=== PATIENT | male | born 1980 | race Caucasian/White ===

== ENCOUNTER 2017-02-26 02:37 | Inpatient (IN) | payer OTHER ==
[2017-02-26] MEDS ORDERED: MORPHINE IV PRN (03:07)
[2017-02-26] MEDS ORDERED: LACTATED RINGERS 1,000 ML IV SCH (04:00)
[2017-02-26] MEDS ORDERED: BENADRYL IV PRN (09:00)
[2017-02-26] MEDS: ZOFRAN IV PRN (09:54)
[2017-02-26] MEDS: HEPARIN/ 0.45% NACL-25,000 UNIT/500 ML 25,000 UNIT/500 ML BAG IV SCH (10:03)
[2017-02-26 10:16] LABS: Basophils % (Auto) 0.4 % (0.0-1.8); Eosinophils % (Auto) 0.6 % (0.0-4.3); Hematocrit 41.6 % (35.5-45.6); Hemoglobin 14.7 gm/dl (11.8-15.2); Mean Corpuscular HGB Conc 35 % (32-34); Mean Corpuscular Hemoglobin 28 pg (28-32); Mean Corpuscular Volume 80 fl (84-94); Platelet Count 172 K/mm3 (140-440); Red Blood Count 5.21 M/mm3 (3.65-5.03); Red Cell Distribution Width 13.6 % (13.2-15.2); White Blood Count 12.2 K/mm3 (4.5-11.0)
[2017-02-26 10:21] LABS: INR 1.16 (0.87-1.13)
[2017-02-26 10:22] LABS: Partial Thromboplastin Time 31.8 Sec. (24.2-36.6)
[2017-02-26 10:29] LABS: Alanine Aminotransferase 57 units/L (7-56); Albumin 4.2 g/dL (3.9-5); Albumin/Globulin Ratio 1.2 %; Alkaline Phosphatase 67 units/L (35-129); Anion Gap 19 mmol/L; Blood Urea Nitrogen 18 mg/dL (9-20); Calcium 8.9 mg/dL (8.4-10.2); Carbon Dioxide 24 mmol/L (22-30); Chloride 98.8 mmol/L (98-107); Glucose 110 mg/dL (75-100); Potassium 4.1 mmol/L (3.6-5.0); Sodium 138 mmol/L (137-145); Total Protein 7.6 g/dL (6.3-8.2)
--- NOTE | 2017-02-26 11:46 | History and Physical Report ---
History of Present Illness Date of examination: 02/26/17 Date of admission: 02/26/17 08:43 Chief complaint: abdominal pain History of present illness: 37 y.o. male transferred from [facility] overnight for a SMV clot. He is s/p sleeve gastrectomy 2-3 weeks ago. The patient had abd. pain starting Tuesday that progressively worsened. He denies any n/v. Denies constipation. He was walking frequently at home. He denies sob or leg pain. In the ER at the other facility, a hep drip was started he was given medication for pain. His abdominal pain has slightly improved but he states the pain remains a 7/10, mid abd, non radiating. He has been tolerating a liquid diet. Past History Past Medical History: other (sleep apnea ) Past Surgical History: Other (lap sleeve gastrectomy ) Social history: no significant social history, Family history: no significant family history Medications and Allergies Allergies Allergy/AdvReac Type Severity Reaction Status Date / Time No Known Allergies Allergy Unverified 02/26/17 08:50 Active Meds: Active Medications Diphenhydramine HCl (Benadryl) 25 mg IV Q6H PRN PRN Reason: Itching Lactated Ringer's (Lactated Ringers) 1,000 mls @ 150 mls/hr IV DIRECT JOSE Last Admin: 02/26/17 10:10 Dose: 150 mls/hr Heparin Sodium/Sodium Chloride (Heparin/ 0.45% Nacl-25,000 Unit/500 Ml) 25,000 unit in 500 mls @ 30 mls/hr IV TITR JOSE; 1,500 UNITS/HR PRN Reason: Protocol Last Admin: 02/26/17 10:03 Dose: 1,500 units/hr, 30 mls/hr Morphine Sulfate (Morphine) 2 mg IV Q4H PRN PRN Reason: Pain, Moderate (4-6) Last Admin: 02/26/17 09:55 Dose: 2 mg Ondansetron HCl (Zofran) 4 mg IV Q4H PRN PRN Reason: Nausea And Vomiting Last Admin: 02/26/17 09:54 Dose: 4 mg Review of Systems - Constitutional no chills, no sweats - Cardiovascular no chest pain, no orthopnea, no palpitations, no edema - Respiratory no cough, no cough with sputum, no excessive sputum, no shortness of breath - Gastrointestinal abdominal pain, other (per hpi) - Genitourinary no dysuria - Muskuloskeletal no neck stiffness, no neck pain, no shooting arm pain - Integumentary no rash, no pruritis, no redness - Neurological no transient paralysis, no paralysis, no weakness, no parathesias Exam Vital Signs Pulse 88 02/26/17 08:46 - General physical appearance Positive: obese - Eyes Positive: PERRL - Respiratory Positive: normal expansion, normal respiratory effort - Cardiovascular Rhythm: regular - Extremities Extremities: no ischemia, pulses intact, pulses symmetrical - Abdomen Abdomen: Present: soft, other (obese,tender mid abd. no rebound no guarding incisions cdi with sterstrips in place ) - Neurologic Neurologic: alert and oriented to time, place and person, motor strength and sensation are grossly intact, CN II-XII intact Results - Labs 02/26/17 09:50 02/26/17 09:50 Abnormal lab results 02/26/17 02/26/17 02/26/17 Range/Units 09:50 09:50 09:50 WBC 12.2 H (4.5-11.0) K/mm3 RBC 5.21 H (3.65-5.03) M/mm3 MCV 80 L (84-94) fl MCHC 35 H (32-34) % [place] % (Auto) 7.7 H (0.0-7.3) % [place] # 0.9 H (0.0-0.8) K/mm3 Seg Neutrophils % 75.1 H (40.0-70.0) % Seg Neutrophils # 9.2 H (1.8-7.7) K/mm3 INR 1.16 H (0.87-1.13) Glucose 110 H (75-100) mg/dL ALT 57 H (7-56) units/L Diabetes panel 02/26/17 Range/Units 09:50 Sodium 138 (137-145) mmol/L Potassium 4.1 (3.6-5.0) mmol/L Chloride 98.8 (98-107) mmol/L Carbon Dioxide 24 (22-30) mmol/L BUN 18 (9-20) mg/dL Creatinine 1.0 (0.8-1.5) mg/dL Glucose 110 H (75-100) mg/dL Calcium 8.9 (8.4-10.2) mg/dL AST 26 (5-40) units/L ALT 57 H (7-56) units/L Alkaline Phosphatase 67 (35-129) units/L Total Protein 7.6 (6.3-8.2) g/dL Albumin 4.2 (3.9-5) g/dL Calcium panel 02/26/17 Range/Units 09:50 Calcium 8.9 (8.4-10.2) mg/dL Albumin 4.2 (3.9-5) g/dL Pituitary panel 02/26/17 Range/Units 09:50 Sodium 138 (137-145) mmol/L Potassium 4.1 (3.6-5.0) mmol/L Chloride 98.8 (98-107) mmol/L Carbon Dioxide 24 (22-30) mmol/L BUN 18 (9-20) mg/dL Creatinine 1.0 (0.8-1.5) mg/dL Glucose 110 H (75-100) mg/dL Calcium 8.9 (8.4-10.2) mg/dL Adrenal panel 02/26/17 Range/Units 09:50 Sodium 138 (137-145) mmol/L Potassium 4.1 (3.6-5.0) mmol/L Chloride 98.8 (98-107) mmol/L Carbon Dioxide 24 (22-30) mmol/L BUN 18 (9-20) mg/dL Creatinine 1.0 (0.8-1.5) mg/dL Glucose 110 H (75-100) mg/dL Calcium 8.9 (8.4-10.2) mg/dL Total Bilirubin 0.50 (0.1-1.2) mg/dL AST 26 (5-40) units/L ALT 57 H (7-56) units/L Alkaline Phosphatase 67 (35-129) units/L Total Protein 7.6 (6.3-8.2) g/dL Albumin 4.2 (3.9-5) g/dL Assessment and Plan - Patient Problems (1) Thrombosis Current Visit: Yes Status: Acute Plan to address problem: 37 yo male s/p sleeve gastrectomy 2-3 weeks prior admitted for SMV thrombosis Hep drip started at other facility and continues. Next PTT at 12pm. Will follow protocol for PTT and hep drip rate. Hemology consulted for transitioning to PO medication from hep drip. Pt has no prior hx of thrombosis Pain control- dilualdid and liquid lortab prn diet: clears, sugar free PPI hx of sleep apnea: resp for cpap at night. Anticipate 2-3 days in the hospital.
[2017-02-26] MEDS ORDERED: 1: FOLVITE 1 MG, INFUVITE 10 ML, VITAMIN B-1 100 MG in NACL 0.9% 1000 ML 988.8 ML 2: NA IV SCH (12:00)
[2017-02-26] MEDS: DILAUDID IV PRN ×3 (12:53→20:51)
[2017-02-26 12:55] LABS: Partial Thromboplastin Time 36.2 Sec. (24.2-36.6)
[2017-02-26] MEDS: PROTONIX PO SCH (12:55)
[2017-02-26] MEDS: INFUVITE IV SCH (13:48)
[2017-02-26] MEDS: VITAMIN B1 IV SCH (13:48)
[2017-02-26] MEDS: NACL 0.9% IV SCH (13:48)
[2017-02-26] MEDS: FOLVITE IV SCH (13:48)
[2017-02-26] MEDS ORDERED: NACL 0.9% 1000 ML 1,000 ML IV SCH (20:00)
--- NOTE | 2017-02-26 22:51 | Consultation ---
History of Present Illness - Reason for Consult Consult date: 02/26/17 SMV thrombus. Requesting physician: PIEDAD GANDARA - History of Present Illness Thank you for this consult, patient seen/examined, record reviewed, case d/w him. Kindly asked to see this patient for the reason above. He is 3 weeks s/p a sleeve gastrectomy procedure, and reported abd pain, w/up led to the dx, he has since been started on IV heparin, hence the consult. He is on BIPAP for TANYA, and denies any new issues at this time. REC continue anticoagulation, see w/up labs. Past History Past Medical History: other (sleep apnea ) Past Surgical History: bowel surgery, Other (lap sleeve gastrectomy ) Social history: no significant social history, Family history: no significant family history Medications and Allergies Allergies Allergy/AdvReac Type Severity Reaction Status Date / Time No Known Allergies Allergy Unverified 02/26/17 08:50 Home Medications Medication Instructions Recorded Confirmed Last Taken Type NexIUM 24Hr 40 mg PO DAILY 02/26/17 02/26/17 02/25/17 10:00 History Active Meds: Active Medications Acetaminophen/Hydrocodone Bitart ([place]) 7.5 mg PO Q4H PRN PRN Reason: Pain, Moderate (4-6) Diphenhydramine HCl (Benadryl) 25 mg IV Q6H PRN PRN Reason: Itching Hydromorphone HCl (Dilaudid) 1 mg IV Q4H PRN PRN Reason: Pain , Severe (7-10) Last Admin: 02/26/17 20:51 Dose: 1 mg Heparin Sodium/Sodium Chloride (Heparin/ 0.45% Nacl-25,000 Unit/500 Ml) 25,000 unit in 500 mls @ 30 mls/hr IV TITR JOSE; 1,500 UNITS/HR PRN Reason: Protocol Last Admin: 02/26/17 10:03 Dose: 1,500 units/hr, 30 mls/hr Multivitamins/Minerals 10 ml/Folic Acid 1 mg/ Thiamine HCl 100 mg/ Sodium Chloride 1,011.2 mls @ 125 mls/hr IV QDAY JOSE Last Admin: 02/26/17 13:48 Dose: 125 mls/hr Sodium Chloride (Nacl 0.9% 1000 Ml) 1,000 mls @ 125 mls/hr IV DIRECT JOSE Ondansetron HCl (Zofran) 4 mg IV Q4H PRN PRN Reason: Nausea And Vomiting Last Admin: 02/26/17 09:54 Dose: 4 mg Pantoprazole Sodium (Protonix) 20 mg PO QDAY JOSE Last Admin: 02/26/17 12:55 Dose: 20 mg Exam - Constitutional Vitals: Temp Pulse Resp BP Pulse Ox 98.3 F 84 20 127/80 95 02/26/17 19:54 02/26/17 19:54 02/26/17 20:51 02/26/17 19:54 02/26/17 19:54 General appearance: Present: mild distress, well-nourished - EENT Eyes: Present: PERRL ENT: hearing intact, clear oral mucosa - Neck Neck: Present: supple, normal ROM - Respiratory Respiratory: bilateral: diminished - Cardiovascular Heart Sounds: Present: S1 & S2. Absent: rub, click - Extremities Extremities: pulses symmetrical, No edema Peripheral Pulses: within normal limits - Abdominal General gastrointestinal: Present: soft, tender, normal bowel sounds Male genitourinary: Present: deferred - Rectal Rectal Exam: deferred - Integumentary Integumentary: Present: clear, warm, dry - Musculoskeletal Musculoskeletal: gait normal, strength equal bilaterally - Psychiatric Psychiatric: appropriate mood/affect, intact judgment & insight - Neurologic Neurologic: CNII-XII intact, moves all extremities Results - Labs CBC & Chem 7: 02/26/17 09:50 02/26/17 09:50 Labs: Abnormal lab results 02/26/17 02/26/17 02/26/17 Range/Units 09:50 09:50 09:50 WBC 12.2 H (4.5-11.0) K/mm3 RBC 5.21 H (3.65-5.03) M/mm3 MCV 80 L (84-94) fl MCHC 35 H (32-34) % [place] % (Auto) 7.7 H (0.0-7.3) % [place] # 0.9 H (0.0-0.8) K/mm3 Seg Neutrophils % 75.1 H (40.0-70.0) % Seg Neutrophils # 9.2 H (1.8-7.7) K/mm3 INR 1.16 H (0.87-1.13) APTT (24.2-36.6) Sec. Heparin Anti-Xa Level (0.3-0.7) U.I./ml Glucose 110 H (75-100) mg/dL ALT 57 H (7-56) units/L 02/26/17 02/26/17 02/26/17 Range/Units 12:04 17:03 21:12 WBC (4.5-11.0) K/mm3 RBC (3.65-5.03) M/mm3 MCV (84-94) fl MCHC (32-34) % [place] % (Auto) (0.0-7.3) % [place] # (0.0-0.8) K/mm3 Seg Neutrophils % (40.0-70.0) % Seg Neutrophils # (1.8-7.7) K/mm3 INR (0.87-1.13) APTT 61.6 H* (24.2-36.6) Sec. Heparin Anti-Xa Level < 0.10 L 0.73 H (0.3-0.7) U.I./ml Glucose (75-100) mg/dL ALT (7-56) units/L Assessment and Plan - Patient Problems (1) Thrombosis Current Visit: Yes Status: Acute Plan to address problem: anticoagulate, see labs/orders. (2) Post surgical complication Current Visit: Yes Status: Acute Qualifiers: Surgical complication system/body Area: S Surgical complication type: S Procedure type: P Encounter type: E Laterality: L Postoperative shock type : P
[2017-02-26] MEDS: NORCO PO PRN (23:57)
[2017-02-27] MEDS: MILK OF MAGNESIA PO SCH ×2 (00:55→09:30)
[2017-02-27] MEDS: MYLICON PO PRN (00:55)
[2017-02-27] MEDS: DILAUDID IV PRN ×4 (02:16→22:59)
[2017-02-27] MEDS: COLACE PO SCH ×3 (02:16→21:48)
[2017-02-27] MEDS: NORCO PO PRN ×4 (05:34→20:17)
[2017-02-27 06:00] LABS: INR 1.11 (0.87-1.13)
[2017-02-27 06:01] LABS: Partial Thromboplastin Time 34.7 Sec. (24.2-36.6)
--- NOTE | 2017-02-27 09:05 | XRay Report ---
Single view abdomen: History: Abdominal pain. Findings: Minimal air in small and large bowel. No bowel wall thickening. No radiopaque calculus or abnormal calcification. Impression: Essentially negative abdomen.
[2017-02-27] MEDS: PROTONIX PO SCH (09:31)
--- NOTE | 2017-02-27 10:35 | Progress Note ---
Assessment and Plan - Patient Problems (1) Thrombosis Current Visit: Yes Status: Acute Plan to address problem: 37 yo male s/p sleeve gastrectomy 2-3 weeks prior admitted for SMV thrombosis SMV thrombosis: heparin drip titrate to PTT. Heme following for recs regarding transition to PO medication. Pt does not have a PCP but would need to be followed if coumadin to be started. Pt would need a PCP or be followed by heme as outpt regarding INR if coumadin started. Appreciate heme recs. Pain control- dilualdid and liquid lortab prn. diet: clears, sugar free PPI hx of sleep apnea: resp for cpap at night. Pt should be encouraged to ambulate. Anticipate 2-3 days in the hospital. Subjective Date of service: 02/27/17 Narrative: Pt seen and examined at bedside. Overnight pt has abdominal pain that was not well controlled with Dilaudid. Pt received lortab liquid overnight He had a liquid bowel movement overnight but feels he should be having more bm. We reassured him liquid bm or constipation is normal after bariatric surgery. He received milk of mag and gas ex overnight. He also has been started on colace. He vomited a small amount this am after drinking juice with medications. He has not vomited since and his nausea improved. afebrile Objective Vital Signs - 12hr 02/26/17 02/27/17 02/27/17 23:57 00:57 01:20 Temperature 98.2 F Pulse Rate 85 Pulse Rate [ Apical] Respiratory 20 20 22 Rate Respiratory Rate [Abdomen] Blood Pressure 140/68 O2 Sat by Pulse 95 Oximetry 02/27/17 02/27/17 02/27/17 01:54 02:16 02:46 Temperature Pulse Rate Pulse Rate [ Apical] Respiratory 20 20 Rate Respiratory 20 Rate [Abdomen] Blood Pressure O2 Sat by Pulse Oximetry 02/27/17 02/27/17 02/27/17 05:14 05:34 06:34 Temperature 98.2 F Pulse Rate 88 Pulse Rate [ Apical] Respiratory 22 18 18 Rate Respiratory Rate [Abdomen] Blood Pressure 133/82 O2 Sat by Pulse 92 Oximetry 02/27/17 02/27/17 02/27/17 08:00 08:25 10:00 Temperature 98.8 F Pulse Rate 98 H 84 Pulse Rate [ 98 H Apical] Respiratory 20 20 Rate Respiratory 18 Rate [Abdomen] Blood Pressure 136/86 O2 Sat by Pulse 94 99 Oximetry - General physical appearance obese - Respiratory normal expansion, normal respiratory effort, clear to auscultation - Abdomen soft, other (obese, incision sites cdi. tender midline. no rebound no guarding. +BS) - Neurologic normal coordination, normal sensation - Psychiatric oriented to time, oriented to person, speech is normal, memory intact - Labs 02/26/17 09:50 02/26/17 09:50 - Imaging Abdominal x-ray: image reviewed
[2017-02-27] MEDS ORDERED: NACL 0.9% IV SCH (11:00)
[2017-02-27] MEDS ORDERED: MILK OF MAGNESIA PO PRN (11:00)
[2017-02-27 13:55] LABS: Partial Thromboplastin Time 47.8 Sec. (24.2-36.6)
[2017-02-27] MEDS: NACL 0.9% 1000 ML 1,000 ML IV SCH (14:15)
[2017-02-27] MEDS: HEPARIN/ 0.45% NACL-25,000 UNIT/500 ML 25,000 UNIT/500 ML BAG IV SCH (14:59)
[2017-02-27] MEDS: ZOFRAN IV PRN (17:52)
[2017-02-27] MEDS: FOLVITE IV SCH (19:41)
[2017-02-27] MEDS: NACL 0.9% IV SCH (19:41)
[2017-02-27] MEDS: VITAMIN B1 IV SCH (19:41)
[2017-02-27] MEDS: INFUVITE IV SCH (19:41)
--- NOTE | 2017-02-27 21:08 | Progress Note ---
Assessment and Plan - Patient Problems (1) Thrombosis Current Visit: Yes Status: Acute Plan to address problem: anticoagulate, see labs/orders. (2) Post surgical complication Current Visit: Yes Status: Acute Qualifiers: Surgical complication system/body Area: S Surgical complication type: S Procedure type: P Encounter type: E Laterality: L Postoperative shock type : P Subjective Date of service: 02/27/17 Interval history: Patient seentoday, resting in bed, labs /notes reviewed, case d/w him/spouse. c/ o feels a bit better from yesterday. KUB ok. He may be started on coumadin oral tomorrow, this will be cheaper for him out patient since he does not have ins coverage. Once INR therapeutic, he may be d/c. Objective - Constitutional Vitals: Vital Signs - 12hr 02/27/17 02/27/17 02/27/17 10:00 12:36 12:56 Temperature 98.6 F Pulse Rate 83 Pulse Rate [ 98 H Apical] Respiratory 20 18 20 Rate Respiratory 18 Rate [Abdomen] Blood Pressure 142/79 O2 Sat by Pulse 99 93 Oximetry 02/27/17 02/27/17 02/27/17 15:29 15:44 20:23 Temperature 98.5 F 98.5 F 99.5 F Pulse Rate 90 Pulse Rate [ Apical] Respiratory 20 20 20 Rate Respiratory Rate [Abdomen] Blood Pressure 127/71 119/70 158/93 O2 Sat by Pulse 96 90 Oximetry General appearance: Present: mild distress, well-nourished - EENT Eyes: PERRL, EOM intact ENT: hearing intact, clear oral mucosa Ears: bilateral: normal - Neck Neck: supple, normal ROM - Respiratory Respiratory: bilateral: diminished - Cardiovascular Rhythm: regular Heart Sounds: Present: S1 & S2. Absent: gallop, rub Extremities: pulses intact, No edema, normal color, Full ROM - Gastrointestinal General gastrointestinal: Present: soft, non-tender, non-distended, normal bowel sounds Rectal Exam: deferred - Genitourinary Male genitourinary: deferred - Integumentary Integumentary: clear, warm, dry - Musculoskeletal Musculoskeletal: 1, strength equal bilaterally - Neurologic Neurologic: moves all extremities - Psychiatric Psychiatric: memory intact, appropriate mood/affect, intact judgment & insight - Labs CBC & Chem 7: 02/26/17 09:50 02/26/17 09:50 Labs: Abnormal lab results 02/26/17 02/27/17 02/27/17 Range/Units 21:12 05:20 05:20 APTT 52.1 H (24.2-36.6) Sec. Heparin Anti-Xa Level 0.73 H 0.25 L (0.3-0.7) U.I./ml 02/27/17 02/27/17 Range/Units 13:21 17:36 APTT 47.8 H 54.0 H (24.2-36.6) Sec. Heparin Anti-Xa Level 0.23 L (0.3-0.7) U.I./ml
[2017-02-28] MEDS: NORCO PO PRN ×2 (01:29→06:38)
[2017-02-28] MEDS: ZOFRAN IV PRN ×3 (01:35→21:45)
[2017-02-28] MEDS: NACL 0.9% 1000 ML 1,000 ML IV SCH (04:21)
[2017-02-28] MEDS: DILAUDID IV PRN ×3 (04:31→14:15)
[2017-02-28] MEDS: HEPARIN/ 0.45% NACL-25,000 UNIT/500 ML 25,000 UNIT/500 ML BAG IV SCH ×2 (05:45→21:49)
[2017-02-28 08:29] LABS: Basophils % (Auto) 0.3 % (0.0-1.8); Eosinophils % (Auto) 0.6 % (0.0-4.3); Hematocrit 40.3 % (35.5-45.6); Hemoglobin 14.1 gm/dl (11.8-15.2); Mean Corpuscular HGB Conc 35 % (32-34); Mean Corpuscular Hemoglobin 28 pg (28-32); Mean Corpuscular Volume 81 fl (84-94); Platelet Count 170 K/mm3 (140-440); Red Blood Count 5.01 M/mm3 (3.65-5.03); Red Cell Distribution Width 13.8 % (13.2-15.2); White Blood Count 12.1 K/mm3 (4.5-11.0)
[2017-02-28] MEDS ORDERED: NACL 0.9% 1000 ML 1,000 ML IV SCH (09:00)
[2017-02-28 09:05] LABS: Anion Gap 20 mmol/L; Blood Urea Nitrogen 8 mg/dL (9-20); Calcium 8.9 mg/dL (8.4-10.2); Carbon Dioxide 26 mmol/L (22-30); Chloride 99.2 mmol/L (98-107); Glucose 119 mg/dL (75-100); Potassium 3.9 mmol/L (3.6-5.0); Sodium 141 mmol/L (137-145)
[2017-02-28] MEDS: PROTONIX PO SCH (10:08)
[2017-02-28] MEDS: COLACE PO SCH ×3 (11:22→21:42)
--- NOTE | 2017-02-28 12:49 | Cat Scan Report ---
CT ABDOMEN AND PELVIS WITH AND WITHOUT CONTRAST History: Abdominal pain, recent diagnosis of superior mesenteric vein thrombosis. Technique: Helical CT before and after IV contrast. Sagittal and coronal reformatted images. Rotational MIP images. Findings: No previous CT of the abdomen at this facility. The images demonstrate partial thrombosis of the proximal superior mesenteric vein. The thrombus extends from the portal venous confluence through the first 5-7 cm of the superior mesenteric vein. The main portal vein and splenic vein are not involved and appear patent and normal caliber. The liver, biliary system, pancreas, spleen, kidneys and adrenal glands are unremarkable. The bowel loops are normal caliber and wall thickness. No evidence for obstruction, focal inflammation or pneumatosis. Gastric sleeve surgical changes are suspected, correlate with history. Appendectomy changes are also suspected. There is mild edema at the base of the mesentery near the SMV thrombosis. No evidence for free air, abscess or other fluid collection. The distal ureters, bladder and prostate gland are unremarkable. The aorta is normal caliber. Heart size is normal. The visualized lung bases are clear. No suspicious bony findings. 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 Nonspecific mesenteric edema. Surgical changes as described.
[2017-02-28] MEDS: D5NS 1,000 ML IV SCH ×2 (13:07→21:40)
--- NOTE | 2017-02-28 13:07 | Progress Note ---
Assessment and Plan 37 yo male s/p sleeve gastrectomy 02/16/17, admitted for SMV thrombosis SMV thrombosis: heparin drip titrate to PTT. Pt had worsening abd. pain this am. CT abd/pelvis with IV contrast completed. Showed SMV thrombosis without extension to renal, splenic or portal vein. IR/ Vasc. consulted. Concern for worsening pain and possible need for thrombolysis. Heme following for recs regarding transition to PO medication. Pt does not have a PCP but would need to be followed if coumadin to be started. Pt would need a PCP or be followed by heme as outpt regarding INR if coumadin started. -Will start coumadin per heme if pt does not warrant further interventions by IR. Appreciate heme recs. Pain control- dilualdid and liquid lortab prn. Lortab to be taken with food when pt is not npo. diet: npo until CT is reviewed by IR. If no further treatment indicated pt can be restarted on a diet. PPI hx of sleep apnea: resp for cpap at night. Pt should be encouraged to ambulate. Anticipate 2-3 days in the hospital. - Patient Problems (1) Thrombosis Current Visit: Yes Status: Acute Subjective Date of service: 02/28/17 Narrative: Pt had worse abdominal pain this am. The pain is LUQ without radiation. He has nausea but denies vomiting. He passed flatus today but no bm. The liquid lortab causes irritation to his stomach which feels like burning. Denies fever or chills. afebrile Objective Vital Signs - 12hr 02/28/17 07:48 Temperature 98.2 F Pulse Rate 93 H Respiratory 20 Rate Blood Pressure 135/71 O2 Sat by Pulse 91 Oximetry - General physical appearance obese - Respiratory normal expansion, normal respiratory effort, clear to auscultation - Abdomen soft, other (obese, soft, tender LUQ, no rebound no guarding. incision sites with steristrips in place. cdi. ) - Integumentary no rash - Labs 02/28/17 07:37 02/28/17 07:37 Diabetes panel 02/28/17 Range/Units 07:37 Sodium 141 (137-145) mmol/L Potassium 3.9 (3.6-5.0) mmol/L Chloride 99.2 (98-107) mmol/L Carbon Dioxide 26 (22-30) mmol/L BUN 8 L (9-20) mg/dL Creatinine 0.8 (0.8-1.5) mg/dL Glucose 119 H (75-100) mg/dL Calcium 8.9 (8.4-10.2) mg/dL Calcium panel 02/28/17 Range/Units 07:37 Calcium 8.9 (8.4-10.2) mg/dL Pituitary panel 02/28/17 Range/Units 07:37 Sodium 141 (137-145) mmol/L Potassium 3.9 (3.6-5.0) mmol/L Chloride 99.2 (98-107) mmol/L Carbon Dioxide 26 (22-30) mmol/L BUN 8 L (9-20) mg/dL Creatinine 0.8 (0.8-1.5) mg/dL Glucose 119 H (75-100) mg/dL Calcium 8.9 (8.4-10.2) mg/dL Adrenal panel 02/28/17 Range/Units 07:37 Sodium 141 (137-145) mmol/L Potassium 3.9 (3.6-5.0) mmol/L Chloride 99.2 (98-107) mmol/L Carbon Dioxide 26 (22-30) mmol/L BUN 8 L (9-20) mg/dL Creatinine 0.8 (0.8-1.5) mg/dL Glucose 119 H (75-100) mg/dL Calcium 8.9 (8.4-10.2) mg/dL - Imaging CT scan - abdomen: image reviewed
--- NOTE | 2017-02-28 15:25 | Consultation ---
History of Present Illness - Reason for Consult Consult date: 02/28/17 SMV thrombosis - History of Present Illness 37 y.o. 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 The patient had abd. pain starting 5 days ago that has somewhat worsened. He denies any n/v. Denies constipation. Immediately after surgery he felt well, but 5 days ago the pain started late Tuesday night. The patient has been on a heparin drip, and has been taking IV pain medications for pain relief. On physical exam, the patient has epigastric and umbilical discomfort. No rebound. Review of CT scan demonstrates thrombus in the SMV without extension into the portal vein, or splenic vein. No evidence of small bowel thickening, or pneumatosis. No free air. There is some mild inflammatory changes in the mesentery likely secondary to the SMV thrombus. Past History Past Medical History: other (sleep apnea ; morbid obesity) Past Surgical History: bowel surgery (sleeve gastrectomy), Other (lap sleeve gastrectomy ) Social history: no significant social history, Family history: no significant family history Medications and Allergies Allergies Allergy/AdvReac Type Severity Reaction Status Date / Time No Known Allergies Allergy Unverified 02/26/17 08:50 Home Medications Medication Instructions Recorded Confirmed Last Taken Type NexIUM 24Hr 40 mg PO DAILY 02/26/17 02/26/17 02/25/17 10:00 History Active Meds: Active Medications Acetaminophen/Hydrocodone Bitart (Taylor 7.5/325) 1 each PO Q4H PRN PRN Reason: Pain, Moderate (4-6) Diphenhydramine HCl (Benadryl) 25 mg IV Q6H PRN PRN Reason: Itching Docusate Sodium (Colace) 100 mg PO BID JOSE Last Admin: 02/28/17 11:22 Dose: 100 mg Hydromorphone HCl (Dilaudid) 1 mg IV Q4H PRN PRN Reason: Pain , Severe (7-10) Last Admin: 02/28/17 14:15 Dose: 1 mg Heparin Sodium/Sodium Chloride (Heparin/ 0.45% Nacl-25,000 Unit/500 Ml) 25,000 unit in 500 mls @ 30 mls/hr IV TITR JOSE; 1,500 UNITS/HR PRN Reason: Protocol Last Admin: 02/28/17 05:45 Dose: 1,650 units/hr, 33 mls/hr Dextrose/Sodium Chloride (D5ns) 1,000 mls @ 125 mls/hr IV DIRECT JOSE Last Admin: 02/28/17 13:07 Dose: 125 mls/hr Magnesium Hydroxide (Milk Of Magnesia) 30 ml PO QDAY PRN PRN Reason: Constipation Ondansetron HCl (Zofran) 4 mg IV Q4H PRN PRN Reason: Nausea And Vomiting Last Admin: 02/28/17 06:39 Dose: 4 mg Pantoprazole Sodium (Protonix) 20 mg PO QDAY JOSE Last Admin: 02/28/17 10:08 Dose: 20 mg Simethicone (Mylicon) 80 mg PO Q6H PRN PRN Reason: Gas pain Last Admin: 02/27/17 00:55 Dose: 80 mg Review of Systems All systems: negative (see HPI) Exam - Constitutional Vitals: Temp Pulse Resp BP Pulse Ox 98.2 F 93 H 20 135/71 91 02/28/17 07:48 02/28/17 07:48 02/28/17 07:48 02/28/17 07:48 02/28/17 07:48 General appearance: Present: no acute distress - EENT Eyes: Present: EOM intact ENT: hearing intact - Respiratory Respiratory effort: normal - Abdominal General gastrointestinal: Present: soft, tender (epigastric and umbilical region ). Absent: rigid - Psychiatric Psychiatric: appropriate mood/affect, cooperative Results - Labs CBC & Chem 7: 02/28/17 07:37 02/28/17 07:37 Labs: Abnormal lab results 02/27/17 02/28/17 02/28/17 Range/Units 17:36 00:47 07:37 WBC 12.1 H (4.5-11.0) K/mm3 MCV 81 L (84-94) fl MCHC 35 H (32-34) % [place] % (Auto) 7.5 H (0.0-7.3) % [place] # 0.9 H (0.0-0.8) K/mm3 Seg Neutrophils % 73.5 H (40.0-70.0) % Seg Neutrophils # 8.9 H (1.8-7.7) K/mm3 APTT 54.0 H 53.3 H (24.2-36.6) Sec. BUN (9-20) mg/dL Glucose (75-100) mg/dL 02/28/17 02/28/17 02/28/17 Range/Units 07:37 07:37 13:24 WBC (4.5-11.0) K/mm3 MCV (84-94) fl MCHC (32-34) % [place] % (Auto) (0.0-7.3) % [place] # (0.0-0.8) K/mm3 Seg Neutrophils % (40.0-70.0) % Seg Neutrophils # (1.8-7.7) K/mm3 APTT 67.7 H* 52.9 H (24.2-36.6) Sec. BUN 8 L (9-20) mg/dL Glucose 119 H (75-100) mg/dL - Imaging and Cardiology CT scan - abdomen: report reviewed, image reviewed Assessment and Plan 37-year-old male status post sleeve gastrectomy complicated by SMV thrombosis. CT scan appears stable from the prior CT report, and there is no extension of the SMV thrombus into the portal vein, IMV, or splenic vein. There is no evidence of small bowel pneumatosis, bowel wall thickening, or bowel complications secondary to venous congestion. I suspect part of the patient's pain is secondary to his reliance on IV narcotics and not oral narcotics. He told me this is because the oral narcotics results in him feeling a "burning" sensation in his belly after he takes his liquid Taylor. He told me that his pain is relieved for 1 hour and subsequently returns, which I explained to him is secondary to his reliance on IV Dilaudid. I discussed with him how he should emphasize oral medications over IV medications in order to have his pain better controlled. The patient's CT is reassuring. At this time, unless the patient's pain significantly worsens over the next few days, I do not feel that the benefits of thrombolysis outweigh the risks given the recent surgical procedure. I explained this to the patient and his . Unfortunately, there are no trials with novel oral anticoagulants with mesenteric thrombosis. Therefore, would recommend Coumadin as the anticoagulants of choice in mesenteric thrombosis.
[2017-02-28] MEDS: NORCO 7.5/325 PO PRN ×2 (17:45→21:47)
[2017-02-28] MEDS ORDERED: COUMADIN PO ONE (18:07)
[2017-02-28] MEDS: CARAFATE PO SCH (18:33)
[2017-02-28] MEDS: COUMADIN PO SCH (19:16)
--- NOTE | 2017-03-01 00:12 | Progress Note ---
Assessment and Plan - Patient Problems (1) Thrombosis Current Visit: Yes Status: Acute Plan to address problem: anticoagulate, see labs/orders. (2) Post surgical complication Current Visit: Yes Status: Acute Qualifiers: Surgical complication system/body Area: S Surgical complication type: S Procedure type: P Encounter type: E Laterality: L Postoperative shock type : P Subjective Date of service: 02/28/17 Interval history: Patient seentoday, resting in bed, labs /notes reviewed, case d/w him/spouse. c/ o feels a bit better from yesterday. KUB ok. He may be started on coumadin oral tomorrow, this will be cheaper for him out patient since he does not have ins coverage. Once INR therapeutic, he may be d/c. Patient seen earlier, case d/w the surgical team, ok with coumadin 5mg for about 2days , and re eval for dosage change. Objective - Constitutional Vitals: Vital Signs - 12hr 02/28/17 02/28/17 02/28/17 15:55 21:47 23:52 Temperature 99.0 F 99.3 F Pulse Rate 88 86 Respiratory 18 18 18 Rate Blood Pressure 147/82 131/76 O2 Sat by Pulse 94 91 Oximetry General appearance: Present: mild distress, well-nourished - EENT Eyes: PERRL, EOM intact ENT: hearing intact, clear oral mucosa Ears: bilateral: normal - Neck Neck: supple, normal ROM - Respiratory Respiratory effort: normal Respiratory: bilateral: CTA - Cardiovascular Rhythm: regular Heart Sounds: Present: S1 & S2. Absent: gallop, rub Extremities: pulses intact, No edema, normal color, Full ROM - Gastrointestinal General gastrointestinal: Present: soft, non-tender, non-distended, normal bowel sounds Rectal Exam: deferred - Genitourinary Male genitourinary: deferred - Integumentary Integumentary: clear, warm, dry - Musculoskeletal Musculoskeletal: 1, strength equal bilaterally - Neurologic Neurologic: moves all extremities - Psychiatric Psychiatric: memory intact, appropriate mood/affect, intact judgment & insight - Labs CBC & Chem 7: 02/28/17 07:37 02/28/17 07:37 Labs: Abnormal lab results 02/28/17 02/28/17 02/28/17 Range/Units 00:47 07:37 07:37 WBC 12.1 H (4.5-11.0) K/mm3 MCV 81 L (84-94) fl MCHC 35 H (32-34) % [place] % (Auto) 7.5 H (0.0-7.3) % Sal[place] # 0.9 H (0.0-0.8) K/mm3 Seg Neutrophils % 73.5 H (40.0-70.0) % Seg Neutrophils # 8.9 H (1.8-7.7) K/mm3 APTT 53.3 H 67.7 H* (24.2-36.6) Sec. Heparin Anti-Xa Level (0.3-0.7) U.I./ml BUN (9-20) mg/dL Glucose (75-100) mg/dL 02/28/17 02/28/17 02/28/17 Range/Units 07:37 13:24 17:30 WBC (4.5-11.0) K/mm3 MCV (84-94) fl MCHC (32-34) % [place] % (Auto) (0.0-7.3) % Sal[place] # (0.0-0.8) K/mm3 Seg Neutrophils % (40.0-70.0) % Seg Neutrophils # (1.8-7.7) K/mm3 APTT 52.9 H 101.2 H* (24.2-36.6) Sec. Heparin Anti-Xa Level (0.3-0.7) U.I./ml BUN 8 L (9-20) mg/dL Glucose 119 H (75-100) mg/dL 02/28/17 02/28/17 Range/Units 23:17 23:17 WBC (4.5-11.0) K/mm3 MCV (84-94) fl MCHC (32-34) % Sal[place] % (Auto) (0.0-7.3) % Saline # (0.0-0.8) K/mm3 Seg Neutrophils % (40.0-70.0) % Seg Neutrophils # (1.8-7.7) K/mm3 APTT 49.2 H (24.2-36.6) Sec. Heparin Anti-Xa Level 0.25 L (0.3-0.7) U.I./ml BUN (9-20) mg/dL Glucose (75-100) mg/dL
[2017-03-01] MEDS: CARAFATE PO SCH ×6 (00:45→23:51)
[2017-03-01] MEDS: DILAUDID IV PRN (02:20)
[2017-03-01] MEDS: NORCO 7.5/325 PO PRN ×5 (05:52→23:46)
[2017-03-01] MEDS: ZOFRAN IV PRN ×2 (06:18→19:24)
[2017-03-01] MEDS: D5NS 1,000 ML IV SCH ×3 (06:21→22:31)
[2017-03-01 07:10] LABS: Basophils % (Auto) 0.4 % (0.0-1.8); Eosinophils % (Auto) 1.1 % (0.0-4.3); Hematocrit 40.6 % (35.5-45.6); Hemoglobin 14.1 gm/dl (11.8-15.2); Mean Corpuscular HGB Conc 35 % (32-34); Mean Corpuscular Hemoglobin 28 pg (28-32); Mean Corpuscular Volume 81 fl (84-94); Platelet Count 207 K/mm3 (140-440); Red Blood Count 5.02 M/mm3 (3.65-5.03); Red Cell Distribution Width 13.4 % (13.2-15.2); White Blood Count 11.8 K/mm3 (4.5-11.0)
[2017-03-01 07:23] LABS: INR 1.3 (0.87-1.13)
[2017-03-01 07:32] LABS: Alanine Aminotransferase 40 units/L (7-56); Albumin 3.9 g/dL (3.9-5); Albumin/Globulin Ratio 1.2 %; Alkaline Phosphatase 71 units/L (35-129); Anion Gap 16 mmol/L; BUN/Creatinine Ratio 7.77; Blood Urea Nitrogen 7 mg/dL (9-20); Carbon Dioxide 29 mmol/L (22-30); Chloride 99.4 mmol/L (98-107); Glucose 131 mg/dL (75-100); Potassium 3.9 mmol/L (3.6-5.0); Sodium 140 mmol/L (137-145); Total Protein 7.1 g/dL (6.3-8.2)
[2017-03-01 07:52] LABS: Partial Thromboplastin Time 68.8 Sec. (24.2-36.6)
[2017-03-01] MEDS: PROTONIX PO SCH (10:28)
[2017-03-01] MEDS: COLACE PO SCH ×2 (10:28→22:28)
[2017-03-01] MEDS: HEPARIN/ 0.45% NACL-25,000 UNIT/500 ML 25,000 UNIT/500 ML BAG IV SCH (12:30)
[2017-03-01] MEDS: MYLICON PO PRN (16:00)
[2017-03-01] MEDS: COUMADIN PO SCH (16:49)
--- NOTE | 2017-03-01 17:39 | Progress Note ---
Assessment and Plan 37 yo male s/p sleeve gastrectomy 02/16/17, admitted for SMV thrombosis SMV thrombosis: heparin drip titrate to PTT. Coumadin started yesterday per Heme at 10mg daily being titrated by pharmacy with arrangement made for INR management after discharge. Pt had CT abd/pelvis with IV contrast completed. Showed SMV thrombosis without extension to renal, splenic or portal vein. IR/Vasc. was consulted. Pt does not warrant further interventions by IR. Appreciate heme recs. Pain control- dilaudid and solid lortab but crushed prn. Lortab to be taken with food diet: Restarted on a bariatric 2 diet. PPI hx of sleep apnea: resp for cpap at night. Discussed with patient importance of CPAP this am. Pt should be encouraged to ambulate. Anticipate 2-3 days in the hospital. Subjective Date of service: 03/01/17 Narrative: Patient seen with no acute events overnight. Patient feeling better today than yesterday. BM x1 reported as loose dark brown in color. Pain improved. Afebrile with patient reporting ambulating as encouraged. Objective Vital Signs - 12hr 03/01/17 03/01/17 07:37 16:09 Temperature 98.3 F 98.5 F Pulse Rate 95 H 82 Respiratory 18 18 Rate Blood Pressure 110/67 140/80 O2 Sat by Pulse 92 94 Oximetry - General physical appearance well developed, well nourished, no distress, obese - Eyes PERRL, normal occular movement - ENT normal nares, normal mucosa, no congestion - Neck no masses, trachea midline - Respiratory normal expansion, normal respiratory effort, clear to auscultation - Abdomen soft, bowel sounds normal, surgical scars (Surgical wounds clean dry and intact) - Integumentary no rash, no abnormal pigmentation - Psychiatric oriented to time, oriented to person, oriented to place, speech is normal, memory intact - Labs 03/01/17 06:47 03/01/17 06:47 Diabetes panel 03/01/17 Range/Units 06:47 Sodium 140 (137-145) mmol/L Potassium 3.9 (3.6-5.0) mmol/L Chloride 99.4 (98-107) mmol/L Carbon Dioxide 29 (22-30) mmol/L BUN 7 L (9-20) mg/dL Creatinine 0.9 (0.8-1.5) mg/dL Glucose 131 H (75-100) mg/dL Calcium 9.0 (8.4-10.2) mg/dL AST 19 (5-40) units/L ALT 40 (7-56) units/L Alkaline Phosphatase 71 (35-129) units/L Total Protein 7.1 (6.3-8.2) g/dL Albumin 3.9 (3.9-5) g/dL Calcium panel 03/01/17 Range/Units 06:47 Calcium 9.0 (8.4-10.2) mg/dL Albumin 3.9 (3.9-5) g/dL Pituitary panel 03/01/17 Range/Units 06:47 Sodium 140 (137-145) mmol/L Potassium 3.9 (3.6-5.0) mmol/L Chloride 99.4 (98-107) mmol/L Carbon Dioxide 29 (22-30) mmol/L BUN 7 L (9-20) mg/dL Creatinine 0.9 (0.8-1.5) mg/dL Glucose 131 H (75-100) mg/dL Calcium 9.0 (8.4-10.2) mg/dL Adrenal panel 03/01/17 Range/Units 06:47 Sodium 140 (137-145) mmol/L Potassium 3.9 (3.6-5.0) mmol/L Chloride 99.4 (98-107) mmol/L Carbon Dioxide 29 (22-30) mmol/L BUN 7 L (9-20) mg/dL Creatinine 0.9 (0.8-1.5) mg/dL Glucose 131 H (75-100) mg/dL Calcium 9.0 (8.4-10.2) mg/dL Total Bilirubin 0.40 (0.1-1.2) mg/dL AST 19 (5-40) units/L ALT 40 (7-56) units/L Alkaline Phosphatase 71 (35-129) units/L Total Protein 7.1 (6.3-8.2) g/dL Albumin 3.9 (3.9-5) g/dL
--- NOTE | 2017-03-01 22:44 | Event Note ---
Date: 03/01/17 Patient resting in bed, notes/labs reviewed, INR still sub therapeutic. if no appreciable increase after tomorrow, will increase coumadin dosage. If he can afford eloquis, it would have been easier to transition home sooner.
[2017-03-02] MEDS: HEPARIN/ 0.45% NACL-25,000 UNIT/500 ML 25,000 UNIT/500 ML BAG IV SCH (02:41)
[2017-03-02] MEDS: CARAFATE PO SCH ×4 (05:11→23:42)
[2017-03-02] MEDS: NORCO 7.5/325 PO PRN ×4 (05:11→23:41)
[2017-03-02 05:29] LABS: Hematocrit 40.2 % (35.5-45.6)
[2017-03-02 05:40] LABS: INR 2.73 (0.87-1.13)
[2017-03-02] MEDS: D5NS 1,000 ML IV SCH ×2 (06:14→15:35)
[2017-03-02] MEDS: PROTONIX PO SCH (10:49)
[2017-03-02] MEDS: COLACE PO SCH ×2 (10:49→23:42)
[2017-03-02] MEDS: DILAUDID IV PRN (11:07)
[2017-03-02 12:47] LABS: Protein S, Free 88 % normal (57-171); Protein S, Total 121 % (70-140)
--- NOTE | 2017-03-02 16:22 | Progress Note ---
Assessment and Plan 37 yo male s/p sleeve gastrectomy 02/16/17, admitted for SMV thrombosis SMV thrombosis: Theraputic on coumadin. Hep discontinued. Possible supratheraputic tomorrow. Away recs from Heme/pharm for home dose of coumadin. Pt had CT abd/pelvis with IV contrast completed. Showed SMV thrombosis without extension to renal, splenic or portal vein. IR/Vasc. was consulted. Pt does not warrant further interventions by IR. Appreciate heme recs. Pain control- dilaudid and solid lortab but crushed prn. Lortab to be taken with food diet: wanda: soft PPI hx of sleep apnea: resp for cpap at night. Discussed with patient importance of CPAP this am. Pt should be encouraged to ambulate. Anticipate dc tomorrow. - Patient Problems (1) Thrombosis Current Visit: Yes Status: Acute Subjective Date of service: 03/02/17 Patient Reports: Positive: no new complaints, feels better, tolerating liquids well, flatus, bowel movement, afebrile. Negative: shortness of breath, fever Objective Vital Signs - 12hr 03/02/17 03/02/17 03/02/17 05:11 06:10 07:52 Temperature 98.5 F Pulse Rate 79 Respiratory 18 18 18 Rate Blood Pressure 117/68 O2 Sat by Pulse 87 Oximetry - General physical appearance well developed, well nourished, no distress, obese - Eyes PERRL - Respiratory normal expansion, normal respiratory effort - Abdomen soft, not tender, bowel sounds normal, not distended, not masses, not rebound, not guarding, not rigid - Integumentary no rash, no growths - Psychiatric oriented to time, oriented to person, oriented to place, speech is normal - Labs 03/02/17 05:01 03/01/17 06:47
[2017-03-02] MEDS ORDERED: COUMADIN PO SCH (17:00)
--- NOTE | 2017-03-03 | Progress Note ---
Assessment and Plan - Patient Problems (1) Thrombosis Current Visit: Yes Status: Acute Plan to address problem: anticoagulate, see labs/orders. He may be d/c on coumadin. (2) Post surgical complication Current Visit: Yes Status: Acute Qualifiers: Surgical complication system/body Area: S Surgical complication type: S Procedure type: P Encounter type: E Laterality: L Postoperative shock type : P Subjective Date of service: 03/02/17 Interval history: Patient seentoday, resting in bed, labs /notes reviewed, case d/w him/spouse. c/ o feels a bit better from yesterday. KUB ok. He may be started on coumadin oral tomorrow, this will be cheaper for him out patient since he does not have ins coverage. Once INR therapeutic, he may be d/c. Patient seen earlier, case d/w the surgical team, ok with coumadin 5mg for about 2days , and re eval for dosage change. Patient resting in bed.review coags. Objective - Constitutional Vitals: Vital Signs - 12hr 03/02/17 03/02/17 16:29 22:07 Temperature 98.2 F 98.4 F Pulse Rate 76 78 Respiratory 18 16 Rate Blood Pressure 122/77 116/62 O2 Sat by Pulse 94 94 Oximetry General appearance: Present: no acute distress - Genitourinary Male genitourinary: deferred - Labs CBC & Chem 7: 03/02/17 05:01 03/01/17 06:47 Labs: Abnormal lab results 02/27/17 03/02/17 Range/Units 05:20 05:01 PT 29.1 H (12.2-14.9) Sec. INR 2.73 H (0.87-1.13) Antithrombin III Ag 76 L (80-120) %
[2017-03-03 06:27] LABS: INR 2.91 (0.87-1.13)
[2017-03-03] MEDS: D5NS 1,000 ML IV SCH ×2 (07:19→14:53)
[2017-03-03] MEDS: CARAFATE PO SCH ×2 (07:19→12:33)
[2017-03-03] MEDS: NORCO 7.5/325 PO PRN (07:33)
[2017-03-03] MEDS: PROTONIX PO SCH (11:17)
[2017-03-03] MEDS: COLACE PO SCH (11:17)
--- NOTE | 2017-03-03 12:16 | Progress Note ---
Assessment and Plan 37 yo male s/p sleeve gastrectomy 02/16/17, admitted for SMV thrombosis SMV thrombosis: Theraputic on coumadin. Hep discontinued. INR is theraputic. He will be discharged today with RX for coumadin. He will follow up with Dr. Diego the physical director. The office number has been provided to the patient. He as been given a handout regarding coumadin as well. Pain control-denies pain diet: wanda: soft PPI hx of sleep apnea: resp for cpap at night. Discussed with patient importance of CPAP this am. Pt should be encouraged to ambulate. DC with follow up with physical director and in Bariatric office. - Patient Problems (1) Thrombosis Current Visit: Yes Status: Acute Subjective Patient Reports: Positive: no new complaints, tolerating liquids well, afebrile. Negative: still having pain, vomiting, shortness of breath Narrative: No issues today . Pt doing well. He understand he must take the coumadin as directed. Objective Vital Signs - 12hr 03/03/17 07:33 Temperature 98.6 F Pulse Rate 80 Respiratory 15 Rate Blood Pressure 106/57 O2 Sat by Pulse 95 Oximetry - General physical appearance well developed, no pain, obese - Respiratory normal expansion, normal respiratory effort, clear to auscultation - Abdomen soft, not tender, bowel sounds normal, not distended, not rebound, not guarding , not rigid - Integumentary no rash, no growths - Neurologic normal coordination, normal sensation - Musculoskeletal normal gait, normal posture - Psychiatric oriented to time, oriented to person, oriented to place, speech is normal - Labs 03/02/17 05:01 03/01/17 06:47
--- NOTE | 2017-03-03 14:40 | Discharge Summary ---
Providers - Providers Date of Admission: 02/26/17 08:43 Date of discharge: 03/03/17 Attending physician: JARED CLARK 02/26/17 11:26 Consult to Physician [CONS] Stat Consulting Provider: RAYMUNDO PRADHAN Reason For Exam: new SMV clot s/p bariatric surgery Place consult to:: Dr. Pradhna Notified:: yes Was contact made?: Yes If yes, spoke with:: attending Time called:: 11:27 02/28/17 09:04 Consult to Interventional Radiology [CONS] Routine Consulting Provider: OLIVIA INFANTE Reason For Exam: SMV thrombosis s/p sleeve gastrectomy Place consult to:: dr. infante Notified:: office Phone number called:: Was contact made?: Yes If yes, spoke with:: Dr. Infante/ no Time called:: 09:30 Comment:: left voice mail/ on answer at ex [phone] Primary care physician: PIEDAD GANDARA Hospitalization Condition: Good Hospital course: 37 y.o. male admitted to the hospital for SMV thrombosis s/p lap sleeve gastrectomy 1 week earlier. He was started on a heparin drip until theraputic PTT was reached and then started on coumadin. During his hospital course his abdominal pain worsened so a CT abd/pelvis with IV contrast was performed to r/ o extension or worsening of the smv thrombosis. The CT did not show worsening of the thrombosis and no surgical intervention was needed per IR consult. The patient denied pain at time of discharge. He understands he must take coumadin daily and follow up with the supervisor electrolytic tinning for regular blood tests to check his INR. Disposition: TO HOME OR SELFCARE - Discharge Diagnoses (1) Thrombosis Status: Acute Core Measure Documentation - Palliative Care Palliative Care/ Comfort Measures: Not Applicable - Core Measures Any of the following diagnoses?: none Exam - Physical Exam Narrative exam: VSS Cardio: RRR Lungs: CTA Abd: soft, obese, incisions cdi. no rebound no guarding ext: no c/c/e - Constitutional Vitals: Temp Pulse Resp BP Pulse Ox 98.6 F 80 15 106/57 95 03/03/17 07:33 03/03/17 07:33 03/03/17 07:33 03/03/17 07:33 03/03/17 07:33 Plan Activity: other (no lifting >15lbs for 6 weeks. ) Diet: other (Bariatric week 4 diet ) Follow up with: JARED CLARK MD [Staff Physician] - 7 Days RAYMUNDO PRADHAN DO [Staff Physician] - 3 Days (Call office to make an appointment. ) Forms: Warfarin Discharge Instruction
[2017-03-03] MEDS ORDERED: COUMADIN PO SCH (17:00)
[2017-03-03 17:24] VITALS: BP 131/83
== END 2017-03-03 18:00 | disposition home or self-care (01) | DRG 394 ==
LOC: UNDOADMIN 02:37 → 4A 02:37 → 3A 02-27 13:46
PROVIDERS: ADMIT Surgery; ATTEND Specialist
DX: K91.89 Other postprocedural complications and disorders of digestive system (principal); I82.90 Acute embolism and thrombosis of unspecified vein
CPT/HCPCS: 36415; 74000; 74178; 80048; 80053; 82140; 83516; 83735; 85014; 85018; 85025; 85049; 85220; 85301; 85305; 85307; 85520; 85610; 85652; 85730; 94660; J1170; J1644; J2270; J2405; J3411; J7030; J7042; J7120; Q9967